=== PATIENT | male | born 1955 | race Caucasian/White ===

== ENCOUNTER → 2016-11-05 | Outpatient (CLI) | payer OTHER ==
[~2016-11-05] MED LIST: ASPIRIN PO; CERTAGEN PO; CORDARONE200 M1 PO; DICLOFENAC PO; IMDUR PO; LASIX PO; LIPITOR; LIPITOR PO; LISINOPRIL PO; LOPRESSOR PO; MEDROL PO; MULTIVITAMIN1 UDCAP PO; OMEPRAZOLE20 M2 PO; PLAVIX PO; PRADAXA75 MG PO; PRILOSEC40 MG PO; SODIUM BICARBO650 MG PO; VALTREX500 MG PO; VICODIN 5/1 TAB 5/50 PO; VITAMIN B122500 MCG PO
[2016-11-05 16:36] LABS: BASOPHIL# 0.1 X10e3 (0-0.3); BASOPHIL% 1.2 % (0-2.5); EOSINOPHIL# 0.3 X10e3 (0-0.7); EOSINOPHIL% 4.2 % (0.0-7.0); HEMATOCRIT 36.9 % (38.0-50.0); LYMPHOCYTE# 1.2 X10e3 (1.0-3.5); LYMPHOCYTE% 19.7 % (17.0-45.0); MEAN CELL VOLUME 92.7 FL (83-96); MEAN CORPUSCULAR HEMOGLOBIN 30.1 PG (28-34); MEAN CORPUSCULAR HGB CONC 32.5 g/dL (30-36); MEAN PLATELET VOLUME 8.1 FL (6.5-11.5); MONOCYTE# 0.6 X10e3 (0-1.0); MONOCYTE% 10.6 % (3.0-12.0); NEUTROPHIL# 3.8 X10e3 (1.5-7.1); NEUTROPHIL% 64.3 % (40-75); PLATELET COUNT 181 X10e3 (140-420); RED BLOOD COUNT 3.97 X10e (3.90-5.60); RED CELL DISTRIBUTION WIDTH 14.2 % (11.0-15.5); WHITE BLOOD COUNT 5.9 X10e3 (4.0-10.5)
[2016-11-05 16:38] LABS: DIFF IND NO
[2016-11-05 17:03] LABS: BUN/CREATININE RATIO 10.28; CALCIUM SERUM 10.3 mg/dL (8.4-10.2); GLOM FILT RATE Estimated 7.7 mL/min (>60); PHOSPHOROUS 5.4 mg/dL (2.5-4.6); POTASSIUM 4.9 mmol/L (3.5-5.1)
[2016-11-10 18:02] LABS: CALCIUM (PTHINTACT) 10.5 mg/dL (8.6-10.3)
== END | disposition home or self-care (01) ==
LOC: CLAB 16:18
PROVIDERS: Internal Medicine Nephrology
DX: N18.5 Chronic kidney disease, stage 5 (principal)
CPT/HCPCS: 36415; 80048; 82306; 82310; 82652; 83970; 84100; 85025

== ENCOUNTER → 2017-01-30 | Outpatient (CLI) | payer OTHER ==
[2017-01-30 16:24] LABS: BASOPHIL# 0.1 X10e3 (0-0.3); BASOPHIL% 0.8 % (0-2.5); EOSINOPHIL# 0.3 X10e3 (0-0.7); EOSINOPHIL% 3.9 % (0.0-7.0); HEMATOCRIT 38.4 % (38.0-50.0); HEMOGLOBIN 12.8 gm/dL (13.0-16.0); LYMPHOCYTE# 1.3 X10e3 (1.0-3.5); LYMPHOCYTE% 18.1 % (17.0-45.0); MEAN CELL VOLUME 91.3 FL (83-96); MEAN CORPUSCULAR HEMOGLOBIN 30.5 PG (28-34); MEAN CORPUSCULAR HGB CONC 33.4 g/dL (30-36); MEAN PLATELET VOLUME 8.3 FL (6.5-11.5); MONOCYTE# 0.7 X10e3 (0-1.0); MONOCYTE% 10.2 % (3.0-12.0); NEUTROPHIL# 4.7 X10e3 (1.5-7.1); PLATELET COUNT 161 X10e3 (140-420); RED CELL DISTRIBUTION WIDTH 14.1 % (11.0-15.5)
[2017-01-30 16:26] LABS: DIFF IND NO
[2017-01-30 16:47] LABS: BUN/CREATININE RATIO 10.62; CALCIUM SERUM 10.5 mg/dL (8.4-10.2); CREATININE SERUM 6.4 mg/dL (0.6-1.4); GLOM FILT RATE Estimated 8.6 mL/min (>60); POTASSIUM 4.5 mmol/L (3.5-5.1)
== END | disposition home or self-care (01) ==
LOC: CLAB 15:53
PROVIDERS: Internal Medicine Nephrology
DX: N18.5 Chronic kidney disease, stage 5 (principal); E55.9 Vitamin D deficiency, unspecified
CPT/HCPCS: 36415; 80048; 82306; 82310; 82652; 83970; 85025

== ENCOUNTER → 2017-02-04 | Outpatient (CLI) | payer OTHER ==
[2017-02-07 07:15] LABS: CALCIUM (PTHINTACT) 10.7 mg/dL (8.6-10.3)
== END | disposition home or self-care (01) ==
LOC: CLAB 15:57
PROVIDERS: Internal Medicine Nephrology
DX: N18.5 Chronic kidney disease, stage 5 (principal); E55.9 Vitamin D deficiency, unspecified
CPT/HCPCS: 82306; 82310; 82652; 83970